=== PATIENT | male | born 1970 | race Asian ===

== ENCOUNTER 2017-10-10 16:09 | Emergency (ER) | payer OTHER ==
[~2017-10-10] VITALS: Ht 177.8 cm; Wt 77.1 kg
[2017-10-10 16:37] VITALS: Ht 177.8 cm; Wt 77.1 kg
[2017-10-10 20:25] VITALS: BP 159/99
== END 2017-10-10 20:25 | disposition home or self-care (01) ==
LOC: ED 16:09
DX: S01.112A Laceration without foreign body of left eyelid and periocular area, initial encounter (principal); W22.01XA Walked into wall, initial encounter; Y93.89 Activity, other specified; Y92.89 Other specified places as the place of occurrence of the external cause; Y99.8 Other external cause status
CPT/HCPCS: 90715